=== PATIENT | female | born 1980 | race Hispanic/Latino ===

== ENCOUNTER 2021-05-03 19:43 | Inpatient (IN) | payer MEDICAID ==
[~2021-05-03] VITALS: Ht 157.5 cm; Wt 65.8 kg
[2021-05-03 20:45] VITALS: BP 152/89
[2021-05-03] MEDS ORDERED: PROMETHAZINE HCL 25 MG/ML 1ML AMPULE IM ONE (21:00)
[2021-05-03 21:11] LABS: BASOPHILS % (AUTO) 0.2 % (0.0-5.0); HEMATOCRIT 38.1 % (36-48); LYMPHOCYTES % (AUTO) 12.6 % (21.0-51.0); MEAN CORPUSCULAR VOLUME 88.8 fL (79-99); MONOCYTES % (AUTO) 3.6 % (3.0-13.0); NEUTROPHILS % (AUTO) 83.3 % (40.0-77.0); PLATELET COUNT (AUTO) 328 K/uL (130-400); RED BLOOD CELL COUNT(AUTO) 4.29 MIL/uL (4.00-5.50); RED CELL DISTRIBUTION WIDTH 12.4 % (11.0-15.5); WHITE BLOOD COUNT (AUTO) 17.3 K/uL (4.8-10.8)
[2021-05-03] MEDS ORDERED: DICYCLOMINE 20MG (10MG/ML) AMP IM STA (21:12)
[2021-05-03] MEDS: 0.9%NACL 1000ML 1,000 ML IV SCH (21:25)
[2021-05-03] MEDS ORDERED: DiphenhydrAMINE HCL 50 MG/ML VIAL IV ONE (21:30)
[2021-05-03 21:41] LABS: APPEARANCE,URINE Clear (CLEAR); BILIRUBIN,URINE Negative (NEGATIVE); COLOR,URINE Yellow (YELLOW); GLUCOSE, URINE (UA) Negative (NEGATIVE); KETONES,URINE Trace mg/dL (NEGATIVE); LEUKOCYTE ESTERASE ,URINE Negative (NEGATIVE); NITRATE,URINE Positive (NEGATIVE); OCCULT BLOOD,URINE Small (NEGATIVE); PROTEIN,URINE POS 2+ mg/dL (NEGATIVE)
[2021-05-03 21:46] LABS: HCG,QUAL RESULT NEGATIVE (NEGATIVE)
[2021-05-03 21:50] LABS: BACTERIA,URINE Moderate /HPF (None Seen); SQUAMOUS EPITHELIAL CELL,UR Few /HPF (0-2); WBC,URINE 0-1 /HPF (0-1)
[2021-05-03 21:59] LABS: GLUCOSE,RANDOM 327 mg/dL (70-105); SODIUM SERUM 116 mmol/L (136-145); UREA NITROGEN, BLOOD 11 mg/dL (7-18)
[2021-05-03 22:00] LABS: BILIRUBIN,TOTAL 1.4 mg/dL (0.2-1.0); LIPASE 1545 U/L (114-286)
[2021-05-03] MEDS ORDERED: CEFTRIAXONE 1G VIAL IVP ONE (22:00)
[2021-05-03 22:12] LABS: CHLORIDE 84 mmol/L (101-111)
[2021-05-03 22:15] LABS: MEAN CORPUSCULAR HEMOGLOBIN 33.9 pg (27.0-33.0); MEAN CORPUSCULAR HGB CONC 37.9 g/dL (32.0-36.0)
[2021-05-03 22:19] LABS: CARBON DIOXIDE 31 mmol/L (21-32)
[2021-05-03] MEDS ORDERED: METOCLOPRAMIDE 10 MG/2 ML VIAL ONE (22:20)
[2021-05-03] MEDS ORDERED: 0.9%NACL 1000ML 1,000 ML IV ONE (22:30)
[2021-05-03] MEDS ORDERED: METOCLOPRAMIDE 10 MG/2 ML VIAL IVP ONE (22:30)
[2021-05-03] MEDS ORDERED: ONDANSETRON 4MG INJ ONE (22:41)
[2021-05-03] MEDS ORDERED: MORPHINE 2 MG SYG ONE (22:41)
[2021-05-03] MEDS ORDERED: ONDANSETRON 4MG INJ IVP ONE (23:00)
[2021-05-03] MEDS ORDERED: MORPHINE 2 MG SYG IVP ONE (23:00)
[2021-05-03 23:09] LABS: ALANINE AMINOTRANSFERASE 26 U/L (12-78); ASPARTATE AMINOTRANSFERASE 90 U/L (10-37)
[2021-05-03] MEDS ORDERED: 0.9%NACL 1000ML 1,000 ML IV SCH (23:30)
[2021-05-03] MEDS ORDERED: INSULIN HUMULIN R 100 UNIT/ML 3ML IV ONE (23:30)
[2021-05-03] MEDS ORDERED: MORPHINE 2 MG SYG IV PRN (23:30)
[2021-05-03] MEDS ORDERED: PIP/TAZ ZOSYN 3.375G 3.375 GM VIAL IVPB SCH (23:30)
[2021-05-03] MEDS ORDERED: 0.9%NACL 50ML IV SCH (23:30)
[2021-05-03] MEDS ORDERED: 0.9%NACL 1000ML 1,503 ML IV ONE (23:30)
[2021-05-04] VITALS (17 sets, daily range): BP systolic 106–176; BP diastolic 61–96
[2021-05-04 00:09] LABS: GLOMERULAR FILTR. RATE CALC 0 mL/min (>60)
[2021-05-04 00:17] LABS: LDL DIRECT 44 mg/dL (0-99); THYROID STIMULATING HORMONE 0.21 uIU/mL (0.36-3.74)
[2021-05-04] MEDS: 0.9%NACL 1000ML 1,000 ML IV SCH (01:00)
[2021-05-04 01:29] LABS: HDL CHOLESTEROL 74 mg/dL (35-85); TRIGLYCERIDES 2476 mg/dL (30-200)
[2021-05-04] MEDS: ZOSYN 3.375GM +NS 50ML IV SCH ×4 (01:51→22:35)
[2021-05-04] MEDS: 0.9%NACL 50ML 50 ML IV SCH ×4 (01:51→22:35)
[2021-05-04] MEDS: HYDROMORPHONE 1 MG INJ IV PRN ×2 (02:58→08:23)
[2021-05-04 05:47] LABS: BASOPHILS % (AUTO) 0.1 % (0.0-5.0); HEMATOCRIT 34.6 % (36-48); MEAN CORPUSCULAR HEMOGLOBIN 36.3 pg (27.0-33.0); MEAN CORPUSCULAR HGB CONC 41.3 g/dL (32.0-36.0); MEAN CORPUSCULAR VOLUME 87.8 fL (79-99); MONOCYTES % (AUTO) 4.7 % (3.0-13.0); NEUTROPHILS % (AUTO) 85.8 % (40.0-77.0); PLATELET COUNT (AUTO) 250 K/uL (130-400); RED BLOOD CELL COUNT(AUTO) 3.94 MIL/uL (4.00-5.50); RED CELL DISTRIBUTION WIDTH 12.5 % (11.0-15.5); WHITE BLOOD COUNT (AUTO) 16.4 K/uL (4.8-10.8)
[2021-05-04] MEDS ORDERED: METRONIDAZOLE 500MG/100ML BAG 100 ML IVPB SCH (06:00)
[2021-05-04 06:07] LABS: MAGNESIUM 1.4 mg/dL (1.80-2.40); PHOSPHORUS 1.7 mg/dL (2.5-4.9); POTASSIUM 4.1 mmol/L (3.5-5.1)
[2021-05-04] MEDS: ONDANSETRON 4MG INJ IV PRN ×2 (06:24→12:22)
[2021-05-04 06:59] LABS: CREATININE 0.6 mg/dL (0.5-1.5)
[2021-05-04] MEDS: MAGNESIUM 2GM PREMIX 50ML 50 ML IV SCH ×2 (09:29→23:39)
[2021-05-04] MEDS: FAMOTIDINE 20MG VIAL IV SCH ×2 (09:29→20:37)
[2021-05-04] MEDS: ENOXAPARIN SODIUM 40 MG/0.4 ML SYRINGE SQ SCH (09:29)
[2021-05-04 10:16] LABS: CHOLESTEROL 433 mg/dL (<200); HDL CHOLESTEROL 38 mg/dL (35-85); LDL DIRECT 52 mg/dL (0-99); TRIGLYCERIDES 4031 mg/dL (30-200)
[2021-05-04 10:49] LABS: ALBUMIN 2.9 g/dL (3.5-5.0); BILIRUBIN,TOTAL 0.5 mg/dL (0.2-1.0); TOTAL PROTEIN, SERUM 7.6 g/dL (6.0-8.3)
[2021-05-04] MEDS ORDERED: PHARMACY COMMUNICATION MISC SCH (11:00)
[2021-05-04] MEDS ORDERED: DEXTROSE 5 % AND 0.9 % NACL 1,000 ML IV SCH (11:00)
[2021-05-04] MEDS: KETOROLAC 15MG/ML VIAL (15MG/ML) IV PRN ×2 (11:10→20:39)
[2021-05-04 11:49] LABS: CREATININE 0.6 mg/dL (0.5-1.5); POTASSIUM 3.8 mmol/L (3.5-5.1)
[2021-05-04 12:12] LABS: AMPHET/METH SCREEN,URINE NEGATIVE (NEGATIVE); BARBITURATE SCREEN, URINE NEGATIVE (NEGATIVE); BENZODIAZEPINES SCREEN,URINE POSITIVE (NEGATIVE); CANNABINOID SCREEN,URINE NEGATIVE (NEGATIVE); COCAINE SCREEN,URINE NEGATIVE (NEGATIVE); OPIATE SCREEN,URINE NEGATIVE (NEGATIVE); PHENCYCLIDINE SCREEN,URINE NEGATIVE (NEGATIVE)
[2021-05-04 12:15] LABS: CREATININE,URINE RANDOM 143 mg/dL (30-135)
[2021-05-04 12:20] LABS: SODIUM,URINE RANDOM 258 mmol/l (40-220)
[2021-05-04] MEDS: INSULIN REGULAR, HUMAN 3ML 100 UNIT in 0.9%NACL 100ML 100 ML SQ SCH ×2 (12:23)
[2021-05-04] MEDS ORDERED: THIAMINE HCL 100 MG TABLET PO SCH (12:41)
[2021-05-04] MEDS ORDERED: FOLIC ACID 1 MG TABLET PO SCH (12:41)
[2021-05-04] MEDS: HYDROMORPHONE 0.5 MG SYG (0.5MG/0.5ML) IV PRN ×2 (13:59→18:56)
[2021-05-04] MEDS ORDERED: SOD PHOSPHATE IV PRN ×2 (14:00)
[2021-05-04] MEDS ORDERED: NS IV PRN ×2 (14:00)
[2021-05-04] MEDS: DEXTROSE 5 %-0.45 % NACL 1,000 ML IV SCH (16:05)
[2021-05-04 17:32] LABS: PROTEIN,URINE RANDOM 95.6 mg/dL (0-11.9)
[2021-05-04 18:35] LABS: CHOLESTEROL 415 mg/dL (<200); HDL CHOLESTEROL 36 mg/dL (35-85); LDL DIRECT 79 mg/dL (0-99)
[2021-05-04 18:46] LABS: PARTIAL THROMBOPLASTIN TIME 30.9 SEC (26.3-35.5); PROTHROMBIN TIME 9.8 SEC (9.6-11.6)
[2021-05-04 18:47] LABS: INR 0.93 (0.85-1.15)
[2021-05-04 18:54] LABS: TRIGLYCERIDES 2830 mg/dL (30-200)
[2021-05-04 19:00] LABS: POTASSIUM 2.9 mmol/L (3.5-5.1)
[2021-05-04] MEDS ORDERED: POTASSIUM CHLORIDE 10% ELIXIR 20 MEQ/15 ML UDCUP PO PRN (19:30)
[2021-05-04] MEDS ORDERED: LIDOCAINE HCL-MPF 1% 2ML VIAL IV PRN (19:30)
[2021-05-04] MEDS ORDERED: POTASSIUM CHLORIDE 20MEQ/100ML 100 ML IV PRN (19:30)
[2021-05-04 19:34] LABS: CREATININE 0.4 mg/dL (0.5-1.5)
[2021-05-04] MEDS: ATORVASTATIN 40 MG TABLET PO SCH (20:38)
[2021-05-04] MEDS: KCL 20 MEQ ERTAB PO PRN ×2 (20:38→22:56)
[2021-05-04] MEDS: FISH OIL 1000 MG/CAP PO SCH (20:38)
[2021-05-04 21:40] LABS: MAGNESIUM 1.8 mg/dL (1.80-2.40); POTASSIUM 3.7 mmol/L (3.5-5.1)
[2021-05-04 21:46] LABS: CREATININE 0.5 mg/dL (0.5-1.5)
[2021-05-05] VITALS (24 sets, daily range): BP systolic 100–133; BP diastolic 62–82
[2021-05-05] MEDS: DEXTROSE 5 %-0.45 % NACL 1,000 ML IV SCH ×3 (01:37→20:44)
[2021-05-05 04:05] LABS: HEMOGLOBIN A1C 5.1 % (4.0-6.0)
[2021-05-05] MEDS: HYDROMORPHONE 0.5 MG SYG (0.5MG/0.5ML) IV PRN ×5 (06:00→22:51)
[2021-05-05 07:10] LABS: BASOPHILS % (AUTO) 0.1 % (0.0-5.0); EOSINOPHILS % (AUTO) 0.1 % (0.0-8.0); HEMATOCRIT 30.3 % (36-48); LYMPHOCYTES % (AUTO) 12.6 % (21.0-51.0); MEAN CORPUSCULAR HEMOGLOBIN 33.5 pg (27.0-33.0); MEAN CORPUSCULAR HGB CONC 37.3 g/dL (32.0-36.0); MEAN CORPUSCULAR VOLUME 89.9 fL (79-99); MONOCYTES % (AUTO) 3.5 % (3.0-13.0); NEUTROPHILS % (AUTO) 83.3 % (40.0-77.0); PLATELET COUNT (AUTO) 354 K/uL (130-400); RED BLOOD CELL COUNT(AUTO) 3.37 MIL/uL (4.00-5.50); RED CELL DISTRIBUTION WIDTH 13.3 % (11.0-15.5); WHITE BLOOD COUNT (AUTO) 14.8 K/uL (4.8-10.8)
[2021-05-05 07:53] LABS: CREATININE 0.8 mg/dL (0.5-1.5); POTASSIUM 3.1 mmol/L (3.5-5.1)
[2021-05-05] MEDS: KCL 20 MEQ ERTAB PO PRN (08:02)
[2021-05-05] MEDS: FAMOTIDINE 20MG VIAL IV SCH ×2 (08:04→20:41)
[2021-05-05] MEDS: THIAMINE HCL 100 MG/ML 2ML VIAL IVP SCH (08:04)
[2021-05-05] MEDS: FISH OIL 1000 MG/CAP PO SCH ×3 (08:07→20:44)
[2021-05-05] MEDS: ZOSYN 3.375GM +NS 50ML IV SCH ×3 (08:08→22:51)
[2021-05-05] MEDS: ENOXAPARIN SODIUM 40 MG/0.4 ML SYRINGE SQ SCH (08:08)
[2021-05-05] MEDS: 0.9%NACL 50ML 50 ML IV SCH ×3 (08:09→22:51)
[2021-05-05] MEDS ORDERED: VENL75CA97 PO (09:29)
[2021-05-05] MEDS ORDERED: ESCI-8 PO (09:29)
[2021-05-05] MEDS ORDERED: ETHI1TAB18 PO (09:29)
[2021-05-05] MEDS ORDERED: FENOFIBRATE NANOCRYSTALLIZED 145 MG TAB PO SCH (09:30)
[2021-05-05] MEDS ORDERED: LACTATED RINGERS 1000ML IV SCH (10:00)
[2021-05-05] MEDS: FENOFIBRATE NANOCRYSTALLIZED 145 MG TAB PO SCH (12:19)
[2021-05-05] MEDS: ONDANSETRON 4MG INJ IV PRN (12:19)
[2021-05-05] MEDS: ATORVASTATIN 40 MG TABLET PO SCH (20:44)
[2021-05-06] VITALS (23 sets, daily range): BP systolic 90–139; BP diastolic 38–86
[2021-05-06 03:58] LABS: BASOPHILS % (AUTO) 0.1 % (0.0-5.0); EOSINOPHILS % (AUTO) 0.7 % (0.0-8.0); HEMATOCRIT 31.6 % (36-48); LYMPHOCYTES % (AUTO) 18.2 % (21.0-51.0); MEAN CORPUSCULAR HGB CONC 32.3 g/dL (32.0-36.0); MONOCYTES % (AUTO) 4.8 % (3.0-13.0); NEUTROPHILS % (AUTO) 75.7 % (40.0-77.0); PLATELET COUNT (AUTO) 193 K/uL (130-400); RED BLOOD CELL COUNT(AUTO) 3.29 MIL/uL (4.00-5.50); RED CELL DISTRIBUTION WIDTH 13.7 % (11.0-15.5); WHITE BLOOD COUNT (AUTO) 12.8 K/uL (4.8-10.8)
[2021-05-06 04:14] LABS: ALBUMIN 2.2 g/dL (3.5-5.0); BILIRUBIN,TOTAL 0.4 mg/dL (0.2-1.0); CREATININE 0.7 mg/dL (0.5-1.5); POTASSIUM 3.7 mmol/L (3.5-5.1); T4 (THYROXINE) 1.9 ug/dL (4.7-13.3); TOTAL PROTEIN, SERUM 6.4 g/dL (6.0-8.3)
[2021-05-06] MEDS: 0.9%NACL 50ML 50 ML IV SCH ×3 (07:36→22:44)
[2021-05-06] MEDS: ZOSYN 3.375GM +NS 50ML IV SCH ×3 (07:36→22:44)
[2021-05-06] MEDS: THIAMINE HCL 100 MG/ML 2ML VIAL IVP SCH (10:05)
[2021-05-06] MEDS: HYDROMORPHONE 0.5 MG SYG (0.5MG/0.5ML) IV PRN ×4 (10:05→22:41)
[2021-05-06] MEDS: FAMOTIDINE 20MG VIAL IV SCH ×2 (10:05→22:40)
[2021-05-06] MEDS: FISH OIL 1000 MG/CAP PO SCH ×3 (10:06→22:40)
[2021-05-06] MEDS: FENOFIBRATE NANOCRYSTALLIZED 145 MG TAB PO SCH (10:06)
[2021-05-06] MEDS: ENOXAPARIN SODIUM 40 MG/0.4 ML SYRINGE SQ SCH (10:06)
[2021-05-06] MEDS: ONDANSETRON 4MG INJ IV PRN (13:07)
[2021-05-06] MEDS: DEXTROSE 5 %-0.45 % NACL 1,000 ML IV SCH ×2 (14:06→23:13)
[2021-05-06] MEDS: INSULIN REGULAR, HUMAN 3ML 100 UNIT in 0.9%NACL 100ML 100 ML SQ SCH ×2 (14:10)
[2021-05-06] MEDS: ATORVASTATIN 40 MG TABLET PO SCH (22:40)
[2021-05-07] VITALS (8 sets, daily range): BP systolic 100–140; BP diastolic 60–83
[2021-05-07] MEDS: DEXTROSE 5 %-0.45 % NACL 1,000 ML IV SCH (00:19)
[2021-05-07 03:29] LABS: BASOPHILS % (AUTO) 0.2 % (0.0-5.0); EOSINOPHILS % (AUTO) 0.6 % (0.0-8.0); HEMATOCRIT 29.6 % (36-48); LYMPHOCYTES % (AUTO) 22.8 % (21.0-51.0); MEAN CORPUSCULAR HEMOGLOBIN 30.9 pg (27.0-33.0); MEAN CORPUSCULAR HGB CONC 33.4 g/dL (32.0-36.0); MEAN CORPUSCULAR VOLUME 92.5 fL (79-99); MONOCYTES % (AUTO) 4.4 % (3.0-13.0); NEUTROPHILS % (AUTO) 71.9 % (40.0-77.0); PLATELET COUNT (AUTO) 191 K/uL (130-400); RED CELL DISTRIBUTION WIDTH 13.2 % (11.0-15.5); WHITE BLOOD COUNT (AUTO) 10.8 K/uL (4.8-10.8)
[2021-05-07 03:44] LABS: ALBUMIN 2.2 g/dL (3.5-5.0); BILIRUBIN,TOTAL 0.2 mg/dL (0.2-1.0); CREATININE 0.7 mg/dL (0.5-1.5); POTASSIUM 3.3 mmol/L (3.5-5.1); TOTAL PROTEIN, SERUM 6.4 g/dL (6.0-8.3)
[2021-05-07] MEDS: 0.9%NACL 50ML 50 ML IV SCH (07:25)
[2021-05-07] MEDS: ZOSYN 3.375GM +NS 50ML IV SCH (07:25)
[2021-05-07] MEDS: KCL 20 MEQ ERTAB PO PRN ×3 (07:26→11:41)
[2021-05-07] MEDS: THIAMINE HCL 100 MG/ML 2ML VIAL IVP SCH (09:03)
[2021-05-07] MEDS: FAMOTIDINE 20MG VIAL IV SCH (09:03)
[2021-05-07] MEDS: FENOFIBRATE NANOCRYSTALLIZED 145 MG TAB PO SCH (09:03)
[2021-05-07] MEDS: FISH OIL 1000 MG/CAP PO SCH ×2 (09:03→13:51)
[2021-05-07] MEDS: ENOXAPARIN SODIUM 40 MG/0.4 ML SYRINGE SQ SCH (09:04)
[2021-05-07] MEDS ORDERED: CEFDINIR 250MG/5ML 60ML BOTTLE PO SCH (10:30)
[2021-05-07] MEDS ORDERED: INSULIN HUMULIN R 100 UNIT/ML 3ML SQ SCH (11:30)
[2021-05-07] MEDS ORDERED: FISH1CAP20 PO (12:19)
[2021-05-07] MEDS ORDERED: THIA100T78 PO (12:19)
[2021-05-07] MEDS ORDERED: ATOR40TA69 PO (12:19)
[2021-05-07] MEDS ORDERED: FENO145T PO (12:19)
[2021-05-07] MEDS ORDERED: CEFD300C3 PO (12:45)
[2021-05-07] MEDS ORDERED: POTASSIUM CHLORIDE 10MEQ SR TAB PO SCH (13:30)
== END 2021-05-07 14:35 | disposition home or self-care (01) | DRG 282 ==
LOC: EDH 19:43 → EDHIP 23:13 → 4CH 05-04 09:11 → 2DH 05-04 12:51
PROVIDERS: ADMIT Internal Medicine; ATTEND Internal Medicine
DX: K85.20 Alcohol induced acute pancreatitis without necrosis or infection (principal); N17.9 Acute kidney failure, unspecified; E11.65 Type 2 diabetes mellitus with hyperglycemia; E83.42 Hypomagnesemia; N39.0 Urinary tract infection, site not specified; E87.1 Hypo-osmolality and hyponatremia; E86.1 Hypovolemia; E78.1 Pure hyperglyceridemia; F41.9 Anxiety disorder, unspecified; F32.9 Major depressive disorder, single episode, unspecified; F12.90 Cannabis use, unspecified, uncomplicated; F17.210 Nicotine dependence, cigarettes, uncomplicated; B96.20 Unspecified Escherichia coli [E. coli] as the cause of diseases classified elsewhere; E78.5 Hyperlipidemia, unspecified; E87.6 Hypokalemia; F10.10 Alcohol abuse, uncomplicated; Z86.32 Personal history of gestational diabetes
CPT/HCPCS: 36415; 71045; 74176; 76700; 80048; 80053; 80061; 80305; 81001; 81025; 82150; 82570; 82948; 83036; 83605; 83690; 83735; 83930; 83935; 84100; 84132; 84145; 84156; 84300; 84436; 84439; 84443; 84481; 84484; 85025; 85610; 85730; 87040; 87077; 87088; 87186; 93005; G0378; J0500; J0696; J1170; J1200; J1650; J1815; J1885; J2405; J2543; J2765; J3411; J3475; J3490; J7030; J7042; J7120

== ENCOUNTER 2021-07-08 17:13 | Inpatient (IN) | payer MEDICAID ==
[~2021-07-08] VITALS: Ht 157.5 cm; Wt 64.5 kg
[~2021-07-08 17:13] MED LIST: ATOR40TA69 PO; CEFD300C3 PO; ESCI-8 PO; ETHI1TAB18 PO; FENO145T PO; FISH1CAP20 PO; THIA100T78 PO; VENL75CA97 PO
[2021-07-08 18:58] LABS: POTASSIUM 3.7 mmol/L (3.5-5.1)
[2021-07-08] MEDS ORDERED: FAMOTIDINE 20MG VIAL IV ONE (19:00)
[2021-07-08] MEDS ORDERED: ONDANSETRON 4MG INJ IVP ONE ×2 (19:00→21:00)
[2021-07-08] MEDS ORDERED: MORPHINE 4 MG SYG IVP ONE ×2 (19:00→20:00)
[2021-07-08 19:02] LABS: BASOPHILS % (AUTO) 0.1 % (0.0-5.0); EOSINOPHILS % (AUTO) 0.1 % (0.0-8.0); HEMATOCRIT 31.9 % (36-48); LYMPHOCYTES % (AUTO) 29.6 % (21.0-51.0); MEAN CORPUSCULAR HEMOGLOBIN 31.9 pg (27.0-33.0); MEAN CORPUSCULAR HGB CONC 36.1 g/dL (32.0-36.0); MEAN CORPUSCULAR VOLUME 88.6 fL (79-99); MONOCYTES % (AUTO) 9.3 % (3.0-13.0); NEUTROPHILS % (AUTO) 60.5 % (40.0-77.0); NUCLEATED RED BLOOD CELLS 0.2 % (0.0-0.19); PLATELET COUNT (AUTO) 226 K/uL (130-400); RED CELL DISTRIBUTION WIDTH 13.3 % (11.0-15.5); WHITE BLOOD COUNT (AUTO) 9.3 K/uL (4.8-10.8)
[2021-07-08 19:56] LABS: LDL DIRECT 27 mg/dL (0-99)
[2021-07-08] MEDS ORDERED: 0.9%NACL 1000ML 1,000 ML IV ONE (20:00)
[2021-07-08 20:11] LABS: CHOLESTEROL 651 mg/dL (<200); HDL CHOLESTEROL 54 mg/dL (35-85)
[2021-07-08 20:33] LABS: TRIGLYCERIDES 8297 mg/dL (30-200)
[2021-07-08 20:36] LABS: ALBUMIN 3.5 g/dL (3.5-5.0); BILIRUBIN,TOTAL 0.2 mg/dL (0.2-1.0); CREATININE 0.7 mg/dL (0.5-1.5); TOTAL PROTEIN, SERUM 8.3 g/dL (6.0-8.3)
[2021-07-08] MEDS ORDERED: HYDROMORPHONE 1 MG INJ IVP ONE (21:00)
[2021-07-08] MEDS ORDERED: KETOROLAC 30MG VIAL (30MG/ML) IV ONE (21:00)
[2021-07-08] MEDS ORDERED: PHARMACY COMMUNICATION MISC SCH (21:30)
[2021-07-08] MEDS ORDERED: 0.9%NACL 100ML 100 ML ONE (22:30)
[2021-07-08] MEDS ORDERED: INSULIN HUMULIN R 100 UNIT/ML 3ML ONE (22:33)
[2021-07-08] MEDS ORDERED: LIDOCAINE HCL-MPF 1% 2ML VIAL IV PRN (23:00)
[2021-07-08] MEDS: FENOFIBRATE NANOCRYSTALLIZED 145 MG TAB PO SCH (23:00)
[2021-07-08] MEDS: ATORVASTATIN 40 MG TABLET PO SCH (23:00)
[2021-07-08] MEDS: LACTATED RINGERS 1000ML 1,000 ML IV SCH (23:55)
[2021-07-08] MEDS: INSULIN REGULAR, HUMAN 3ML 100 UNIT in 0.9%NACL 100ML 99 ML IV SCH ×2 (23:55)
[2021-07-09] MEDS: HYDROMORPHONE 1 MG INJ IV PRN ×4 (01:17→21:35)
[2021-07-09 02:51] LABS: POTASSIUM 3.8 mmol/L (3.5-5.1)
[2021-07-09] MEDS: LACTATED RINGERS 1000ML 1,000 ML IV SCH ×2 (04:10→10:50)
[2021-07-09 04:30] LABS: CREATININE 0.7 mg/dL (0.5-1.5)
[2021-07-09 05:21] LABS: BASOPHILS % (AUTO) 0.2 % (0.0-5.0); EOSINOPHILS % (AUTO) 0.1 % (0.0-8.0); HEMATOCRIT 34.6 % (36-48); LYMPHOCYTES % (AUTO) 10.1 % (21.0-51.0); MEAN CORPUSCULAR HEMOGLOBIN 36.6 pg (27.0-33.0); MEAN CORPUSCULAR HGB CONC 42.2 g/dL (32.0-36.0); MEAN CORPUSCULAR VOLUME 86.7 fL (79-99); MONOCYTES % (AUTO) 6.5 % (3.0-13.0); NEUTROPHILS % (AUTO) 82.8 % (40.0-77.0); PLATELET COUNT (AUTO) 211 K/uL (130-400); RED BLOOD CELL COUNT(AUTO) 3.99 MIL/uL (4.00-5.50); RED CELL DISTRIBUTION WIDTH 13.2 % (11.0-15.5); WHITE BLOOD COUNT (AUTO) 13.7 K/uL (4.8-10.8)
[2021-07-09 05:38] LABS: POTASSIUM 3.8 mmol/L (3.5-5.1)
[2021-07-09] MEDS: ONDANSETRON 4MG INJ IV PRN ×2 (05:42→08:15)
[2021-07-09 06:59] LABS: CREATININE 0.6 mg/dL (0.5-1.5)
[2021-07-09] MEDS: FAMOTIDINE 20MG VIAL IV SCH ×2 (08:14→21:36)
[2021-07-09] MEDS: MORPHINE 2 MG SYG IV PRN ×2 (08:15→14:42)
[2021-07-09] MEDS: FENOFIBRATE NANOCRYSTALLIZED 145 MG TAB PO SCH (08:17)
[2021-07-09] MEDS ORDERED: ENOXAPARIN SODIUM 40 MG/0.4 ML SYRINGE SQ SCH (09:00)
[2021-07-09 10:04] LABS: AMPHET/METH SCREEN,URINE NEGATIVE (NEGATIVE); BARBITURATE SCREEN, URINE NEGATIVE (NEGATIVE); BENZODIAZEPINES SCREEN,URINE POSITIVE (NEGATIVE); CANNABINOID SCREEN,URINE NEGATIVE (NEGATIVE); COCAINE SCREEN,URINE NEGATIVE (NEGATIVE); OPIATE SCREEN,URINE POSITIVE (NEGATIVE); PHENCYCLIDINE SCREEN,URINE NEGATIVE (NEGATIVE)
[2021-07-09 10:09] LABS: LDL DIRECT 39 mg/dL (0-99)
[2021-07-09 11:10] LABS: CHOLESTEROL 235 mg/dL (<200); HDL CHOLESTEROL 22 mg/dL (35-85)
[2021-07-09 11:24] LABS: TRIGLYCERIDES 2085 mg/dL (30-200)
[2021-07-09 14:03] LABS: POTASSIUM 3.7 mmol/L (3.5-5.1)
[2021-07-09 14:40] LABS: CREATININE 0.8 mg/dL (0.5-1.5)
[2021-07-09] MEDS: MEROPENEM 1 GM VIAL IVP SCH ×2 (15:34→23:39)
[2021-07-09] MEDS ORDERED: 0.9%NACL 50ML 50 ML IV ONE (21:12)
[2021-07-09] MEDS: FISH OIL 1000 MG/CAP PO SCH ×2 (21:30→23:39)
[2021-07-09] MEDS: DEXTROSE 5%-LACTATED RINGERS 1,000 ML IV SCH ×2 (21:30→23:00)
[2021-07-09 21:33] LABS: POTASSIUM 3.5 mmol/L (3.5-5.1)
[2021-07-09] MEDS: ATORVASTATIN 40 MG TABLET PO SCH (21:35)
[2021-07-09 22:04] LABS: CREATININE 0.8 mg/dL (0.5-1.5)
[2021-07-10] MEDS: HYDROMORPHONE 1 MG INJ IV PRN ×5 (00:14→23:27)
[2021-07-10] MEDS: ONDANSETRON 4MG INJ IV PRN ×3 (04:13→23:06)
[2021-07-10] MEDS: MORPHINE 2 MG SYG IV PRN (04:13)
[2021-07-10] MEDS: ACETAMINOPHEN 325 MG TAB PO PRN (04:13)
[2021-07-10 04:19] LABS: CREATINE KINASE, TOTAL 51 U/L (21-232)
[2021-07-10 04:40] LABS: TRIGLYCERIDES 4224 mg/dL (30-200)
[2021-07-10] MEDS ORDERED: SIMETHICONE 40 MG/0.6 ML ML PO PRN (06:30)
[2021-07-10] MEDS ORDERED: 0.9%NACL 1000ML 1,000 ML IV SCH ×2 (07:00→07:30)
[2021-07-10] MEDS ORDERED: DEXTROSE 10%-WATER 1,000 ML IV ONE (07:17)
[2021-07-10] MEDS: DEXTROSE 10%-WATER 1,000 ML IV SCH ×3 (07:38→17:54)
[2021-07-10] MEDS: MEROPENEM 1 GM VIAL IVP SCH (07:49)
[2021-07-10] MEDS: FENOFIBRATE NANOCRYSTALLIZED 145 MG TAB PO SCH (07:49)
[2021-07-10] MEDS: FAMOTIDINE 20MG VIAL IV SCH (07:49)
[2021-07-10] MEDS: FISH OIL 1000 MG/CAP PO SCH ×3 (07:49→23:26)
[2021-07-10] MEDS ORDERED: HYDROMORPHONE 1 MG INJ IVP PRN (08:00)
[2021-07-10] MEDS ORDERED: DEXTROSE 50%-WATER 50 ML DISP.SYRIN IV ONE ×3 (08:32→18:30)
[2021-07-10 10:45] LABS: CREATININE 0.7 mg/dL (0.5-1.5); POTASSIUM 3.5 mmol/L (3.5-5.1)
[2021-07-10] MEDS: POTASSIUM CHLORIDE 20MEQ/100ML 100 ML IV PRN (12:17)
[2021-07-10] MEDS: ACETAMINOPHEN 500 MG TABLET PO SCH ×3 (12:32→23:26)
[2021-07-10] MEDS: INSULIN REGULAR, HUMAN 3ML 100 UNIT in 0.9%NACL 100ML 99 ML IV SCH ×4 (13:07→23:00)
[2021-07-10] MEDS ORDERED: IOHEXOL-350 75 ML VIAL IV ONE (13:57)
[2021-07-10] MEDS ORDERED: IOHEXOL-350 50ML VIAL IV ONE (14:12)
[2021-07-10 18:46] LABS: CREATININE 0.7 mg/dL (0.5-1.5); POTASSIUM 3.2 mmol/L (3.5-5.1)
[2021-07-10 19:00] VITALS: BP 124/69
[2021-07-10 20:00] VITALS: BP 92/45
[2021-07-10 21:00] VITALS: BP 105/55
[2021-07-10] MEDS: ATORVASTATIN 40 MG TABLET PO SCH (21:47)
[2021-07-10 22:00] VITALS: BP 130/75
[2021-07-10 23:00] VITALS: BP 119/72
[2021-07-11] VITALS (23 sets, daily range): BP systolic 103–161; BP diastolic 52–81
[2021-07-11 03:31] LABS: BASOPHILS % (AUTO) 0.2 % (0.0-5.0); HEMATOCRIT 28.8 % (36-48); MEAN CORPUSCULAR HEMOGLOBIN 30.5 pg (27.0-33.0); MEAN CORPUSCULAR HGB CONC 34.4 g/dL (32.0-36.0); MEAN CORPUSCULAR VOLUME 88.6 fL (79-99); MONOCYTES % (AUTO) 4.5 % (3.0-13.0); NEUTROPHILS % (AUTO) 77.4 % (40.0-77.0); PLATELET COUNT (AUTO) 184 K/uL (130-400); RED BLOOD CELL COUNT(AUTO) 3.25 MIL/uL (4.00-5.50); RED CELL DISTRIBUTION WIDTH 14.2 % (11.0-15.5); WHITE BLOOD COUNT (AUTO) 12.6 K/uL (4.8-10.8)
[2021-07-11 03:41] LABS: HEMOGLOBIN A1C 5.9 % (4.0-6.0)
[2021-07-11 03:53] LABS: BILIRUBIN,TOTAL 0.4 mg/dL (0.2-1.0); CREATININE 0.9 mg/dL (0.5-1.5); MAGNESIUM 1.3 mg/dL (1.80-2.40)
[2021-07-11 03:54] LABS: POTASSIUM 2.5 mmol/L (3.5-5.1)
[2021-07-11] MEDS: POTASSIUM CHLORIDE 20MEQ/100ML 100 ML IV PRN ×2 (04:00→07:26)
[2021-07-11 04:14] LABS: CRP QUANTITATIVE 269.9 mg/L (0.00-9.0)
[2021-07-11 04:48] LABS: ERYTHROCYTE SEDIMENTATION RATE 77 MM/HR (0-20)
[2021-07-11] MEDS: ACETAMINOPHEN 500 MG TABLET PO SCH ×4 (05:30→22:25)
[2021-07-11] MEDS: ONDANSETRON 4MG INJ IV PRN (06:52)
[2021-07-11] MEDS ORDERED: MAGNESIUM 2GM PREMIX 50ML 50 ML IV PRN (07:00)
[2021-07-11] MEDS: FENOFIBRATE NANOCRYSTALLIZED 145 MG TAB PO SCH (08:02)
[2021-07-11] MEDS: FISH OIL 1000 MG/CAP PO SCH ×3 (08:02→22:24)
[2021-07-11] MEDS: PANTOPRAZOLE 40 MG/VIAL IVP SCH (08:02)
[2021-07-11] MEDS: ACETAMINOPHEN 325 MG TAB PO PRN (08:07)
[2021-07-11] MEDS ORDERED: KCL 20 MEQ ERTAB PO ONE ×2 (08:39→10:33)
[2021-07-11] MEDS: HYDROMORPHONE 1 MG INJ IV PRN (08:42)
[2021-07-11] MEDS: ENOXAPARIN SODIUM 40 MG/0.4 ML SYRINGE SQ SCH (09:00)
[2021-07-11] MEDS: DEXTROSE 5%-WATER 1,000 ML IV SCH ×2 (10:06→20:02)
[2021-07-11 10:15] LABS: INR 1.01 (0.85-1.15)
[2021-07-11 10:17] LABS: PARTIAL THROMBOPLASTIN TIME 32.4 SEC (26.3-35.5)
[2021-07-11] MEDS: MEROPENEM 1 GM VIAL IVP SCH ×2 (10:37→17:45)
[2021-07-11] MEDS: KCL 20 MEQ ERTAB PO PRN ×2 (12:14→17:25)
[2021-07-11] MEDS ORDERED: POTASSIUM PHOS 15 mMOL+NS250ML 250 ML IV PRN ×2 (17:00→17:30)
[2021-07-11] MEDS ORDERED: SOD PHOSPHATE 45 MMOL/15 ML VI 15 MMOL in 0.9% NACL 250ML 250 ML IV PRN (17:30)
[2021-07-11] MEDS: INSULIN REGULAR, HUMAN 3ML 100 UNIT in 0.9%NACL 100ML 99 ML IV SCH ×2 (20:04)
[2021-07-11 20:13] LABS: HEMATOCRIT 27.8 % (36-48)
[2021-07-11 20:33] LABS: CREATININE 0.8 mg/dL (0.5-1.5); MAGNESIUM 2.2 mg/dL (1.80-2.40); PHOSPHORUS 1.6 mg/dL (2.5-4.9); POTASSIUM 3.9 mmol/L (3.5-5.1)
[2021-07-11] MEDS: ATORVASTATIN 40 MG TABLET PO SCH (21:00)
[2021-07-11] MEDS ORDERED: GLUCAGON 1MG KIT 1 MG ML IM PRN (22:00)
[2021-07-11] MEDS: DEXTROSE 50%-WATER 50 ML DISP.SYRIN IV PRN (22:22)
[2021-07-12] VITALS (10 sets, daily range): BP systolic 107–144; BP diastolic 60–92
[2021-07-12] MEDS: MEROPENEM 1 GM VIAL IVP SCH ×3 (02:00→17:14)
[2021-07-12 03:31] LABS: BASOPHILS % (AUTO) 0.1 % (0.0-5.0); EOSINOPHILS % (AUTO) 1.8 % (0.0-8.0); HEMATOCRIT 26.6 % (36-48); LYMPHOCYTES % (AUTO) 31.3 % (21.0-51.0); MEAN CORPUSCULAR HEMOGLOBIN 30.7 pg (27.0-33.0); MEAN CORPUSCULAR HGB CONC 34.2 g/dL (32.0-36.0); MEAN CORPUSCULAR VOLUME 89.9 fL (79-99); MONOCYTES % (AUTO) 6.3 % (3.0-13.0); NEUTROPHILS % (AUTO) 60.1 % (40.0-77.0); PLATELET COUNT (AUTO) 194 K/uL (130-400); RED BLOOD CELL COUNT(AUTO) 2.96 MIL/uL (4.00-5.50); RED CELL DISTRIBUTION WIDTH 14.6 % (11.0-15.5); WHITE BLOOD COUNT (AUTO) 8.9 K/uL (4.8-10.8)
[2021-07-12 04:10] LABS: ALANINE AMINOTRANSFERASE 18 U/L (12-78); ASPARTATE AMINOTRANSFERASE 17 U/L (10-37); BILIRUBIN,TOTAL 0.4 mg/dL (0.2-1.0); CARBON DIOXIDE 26 mmol/L (21-32); CHLORIDE 107 mmol/L (101-111); CREATININE 0.8 mg/dL (0.5-1.5); GLOMERULAR FILTR. RATE CALC 84 mL/min (>60); GLUCOSE,RANDOM 78 mg/dL (70-105); LIPASE 371 U/L (114-286); PHOSPHORUS 1.6 mg/dL (2.5-4.9); POTASSIUM 3.9 mmol/L (3.5-5.1); SODIUM SERUM 139 mmol/L (136-145); TOTAL PROTEIN, SERUM 5.9 g/dL (6.0-8.3); TRIGLYCERIDES 360 mg/dL (30-200); UREA NITROGEN, BLOOD 2 mg/dL (7-18)
[2021-07-12 04:36] LABS: % IRON SATURATION 11.8 % (22-44)
[2021-07-12] MEDS: DEXTROSE 5%-WATER 1,000 ML IV SCH (05:30)
[2021-07-12] MEDS: ACETAMINOPHEN 500 MG TABLET PO SCH ×3 (05:35→17:14)
[2021-07-12] MEDS: DEXTROSE 50%-WATER 50 ML DISP.SYRIN IV PRN (05:55)
[2021-07-12] MEDS ORDERED: COMPOUND IV MISC 1 EACH IVSOLN MISC PRN (09:30)
[2021-07-12] MEDS: FENOFIBRATE NANOCRYSTALLIZED 145 MG TAB PO SCH (09:57)
[2021-07-12] MEDS: FISH OIL 1000 MG/CAP PO SCH ×2 (09:57→15:20)
[2021-07-12] MEDS: PANTOPRAZOLE 40 MG/VIAL IVP SCH (09:58)
[2021-07-12] MEDS: ENOXAPARIN SODIUM 40 MG/0.4 ML SYRINGE SQ SCH (09:58)
[2021-07-12] MEDS: IRON SUCROSE COMPLEX 100 MG in 0.9%NACL 50ML 50 ML IV SCH (09:58)
[2021-07-12] MEDS: INSULIN HUMULIN R 100 UNIT/ML 3ML SQ SCH ×3 (11:30→21:00)
[2021-07-12] MEDS: DEXTROSE 5%-LACTATED RINGERS 1,000 ML IV SCH ×2 (13:24→23:20)
[2021-07-12 19:24] LABS: HEMATOCRIT 29.5 % (36-48)
[2021-07-12] MEDS: ATORVASTATIN 40 MG TABLET PO SCH (21:26)
[2021-07-13] MEDS: FISH OIL 1000 MG/CAP PO SCH ×4 (00:10→23:56)
[2021-07-13] MEDS: ACETAMINOPHEN 500 MG TABLET PO SCH ×5 (00:14→23:57)
[2021-07-13] MEDS: MEROPENEM 1 GM VIAL IVP SCH ×4 (02:04→23:58)
[2021-07-13 04:29] VITALS: BP 131/70
[2021-07-13 04:51] LABS: BASOPHILS % (AUTO) 0.1 % (0.0-5.0); EOSINOPHILS % (AUTO) 1.4 % (0.0-8.0); HEMATOCRIT 28.8 % (36-48); LYMPHOCYTES % (AUTO) 33.2 % (21.0-51.0); MEAN CORPUSCULAR HEMOGLOBIN 30.4 pg (27.0-33.0); MEAN CORPUSCULAR HGB CONC 33.7 g/dL (32.0-36.0); MEAN CORPUSCULAR VOLUME 90.3 fL (79-99); MONOCYTES % (AUTO) 6.9 % (3.0-13.0); NEUTROPHILS % (AUTO) 57.8 % (40.0-77.0); PLATELET COUNT (AUTO) 248 K/uL (130-400); RED BLOOD CELL COUNT(AUTO) 3.19 MIL/uL (4.00-5.50); RED CELL DISTRIBUTION WIDTH 14.5 % (11.0-15.5); WHITE BLOOD COUNT (AUTO) 8.9 K/uL (4.8-10.8)
[2021-07-13 05:20] LABS: ALBUMIN 2.3 g/dL (3.5-5.0); BILIRUBIN,TOTAL 0.3 mg/dL (0.2-1.0); CREATININE 0.9 mg/dL (0.5-1.5); POTASSIUM 3.8 mmol/L (3.5-5.1); TOTAL PROTEIN, SERUM 6.7 g/dL (6.0-8.3)
[2021-07-13] MEDS: INSULIN HUMULIN R 100 UNIT/ML 3ML SQ SCH ×4 (05:47→21:00)
[2021-07-13 08:00] VITALS: BP 120/66
[2021-07-13] MEDS: FENOFIBRATE NANOCRYSTALLIZED 145 MG TAB PO SCH (09:19)
[2021-07-13] MEDS: ENOXAPARIN SODIUM 40 MG/0.4 ML SYRINGE SQ SCH (09:19)
[2021-07-13] MEDS: PANTOPRAZOLE 40 MG/VIAL IVP SCH (09:20)
[2021-07-13] MEDS: IRON SUCROSE COMPLEX 100 MG in 0.9%NACL 50ML 50 ML IV SCH (10:15)
[2021-07-13] MEDS: DEXTROSE 5%-LACTATED RINGERS 1,000 ML IV SCH ×2 (10:21→18:34)
[2021-07-13 12:00] VITALS: BP 126/74
[2021-07-13 16:00] VITALS: BP 101/61
[2021-07-13 19:24] VITALS: BP 139/79
[2021-07-13] MEDS: ATORVASTATIN 40 MG TABLET PO SCH (21:18)
[2021-07-13 23:41] VITALS: BP 151/86
[2021-07-14 04:08] LABS: HEMATOCRIT 28.7 % (36-48); MEAN CORPUSCULAR HEMOGLOBIN 30.3 pg (27.0-33.0); MEAN CORPUSCULAR HGB CONC 33.8 g/dL (32.0-36.0); MEAN CORPUSCULAR VOLUME 89.7 fL (79-99); RED BLOOD CELL COUNT(AUTO) 3.2 MIL/uL (4.00-5.50); RED CELL DISTRIBUTION WIDTH 13.8 % (11.0-15.5); WHITE BLOOD COUNT (AUTO) 7.2 K/uL (4.8-10.8)
[2021-07-14 04:27] LABS: ALBUMIN 2.5 g/dL (3.5-5.0); BILIRUBIN,TOTAL 0.4 mg/dL (0.2-1.0); CREATININE 0.8 mg/dL (0.5-1.5); POTASSIUM 3.7 mmol/L (3.5-5.1); TOTAL PROTEIN, SERUM 6.9 g/dL (6.0-8.3)
[2021-07-14 05:18] VITALS: BP 111/62
[2021-07-14] MEDS: FISH OIL 1000 MG/CAP PO SCH ×2 (05:19→15:44)
[2021-07-14] MEDS: ACETAMINOPHEN 500 MG TABLET PO SCH ×2 (05:21→11:31)
[2021-07-14] MEDS: INSULIN HUMULIN R 100 UNIT/ML 3ML SQ SCH ×3 (06:34→15:57)
[2021-07-14 08:24] VITALS: BP 105/57
[2021-07-14] MEDS: FENOFIBRATE NANOCRYSTALLIZED 145 MG TAB PO SCH (08:52)
[2021-07-14] MEDS: IRON SUCROSE COMPLEX 100 MG in 0.9%NACL 50ML 50 ML IV SCH (08:52)
[2021-07-14] MEDS: ENOXAPARIN SODIUM 40 MG/0.4 ML SYRINGE SQ SCH (08:53)
[2021-07-14] MEDS: PANTOPRAZOLE 40 MG/VIAL IVP SCH (08:54)
[2021-07-14 10:48] VITALS: BP 114/63
[2021-07-14] MEDS: MEROPENEM 1 GM VIAL IVP SCH (11:30)
[2021-07-14] MEDS ORDERED: OMEG-148 PO (14:40)
[2021-07-14] MEDS ORDERED: ICOS1CAP PO (14:40)
[2021-07-14] MEDS: DEXTROSE 5%-LACTATED RINGERS 1,000 ML IV SCH (15:20)
[2021-07-14 15:57] VITALS: BP 132/84
== END 2021-07-14 17:15 | disposition home or self-care (01) | DRG 282 ==
LOC: EDH 17:13 → EDHIP 21:05 → 2DH 07-10 19:43 → 3CH 07-12 16:00
PROVIDERS: ADMIT Internal Medicine; ATTEND Internal Medicine
DX: K85.80 Other acute pancreatitis without necrosis or infection (principal); D65 Disseminated intravascular coagulation [defibrination syndrome]; N17.9 Acute kidney failure, unspecified; E83.42 Hypomagnesemia; E83.39 Other disorders of phosphorus metabolism; E11.65 Type 2 diabetes mellitus with hyperglycemia; R71.0 Precipitous drop in hematocrit; E87.8 Other disorders of electrolyte and fluid balance, not elsewhere classified; R16.0 Hepatomegaly, not elsewhere classified; R18.8 Other ascites; E87.1 Hypo-osmolality and hyponatremia; E86.1 Hypovolemia; E78.1 Pure hyperglyceridemia; F11.10 Opioid abuse, uncomplicated; E87.6 Hypokalemia; F13.10 Sedative, hypnotic or anxiolytic abuse, uncomplicated; F41.9 Anxiety disorder, unspecified; F32.A Depression, unspecified; E78.5 Hyperlipidemia, unspecified; F17.210 Nicotine dependence, cigarettes, uncomplicated; F12.90 Cannabis use, unspecified, uncomplicated; F19.10 Other psychoactive substance abuse, uncomplicated; K76.0 Fatty (change of) liver, not elsewhere classified; Z98.51 Tubal ligation status; Z86.32 Personal history of gestational diabetes; Z56.0 Unemployment, unspecified; Z91.11 Patient's noncompliance with dietary regimen; Z91.19 Patient's noncompliance with other medical treatment and regimen
CPT/HCPCS: 36415; 74174; 74176; 76705; 80048; 80053; 80061; 80305; 81025; 82150; 82550; 82607; 82728; 82746; 82948; 83036; 83540; 83550; 83690; 83735; 83930; 83935; 84100; 84132; 84145; 84300; 84478; 85014; 85018; 85025; 85027; 85378; 85384; 85610; 85651; 85730; 86140; 86701; 86850; 86900; 86901; 87040; 87088; 87390; C9113; G0378; J1170; J1650; J1756; J1815; J1885; J2185; J2270; J2405; J3475; J3480; J3490; J7030; J7050; J7070; Q9967

== ENCOUNTER 2023-01-07 09:33 | Emergency (ER) | payer MEDICAID ==
[~2023-01-07] VITALS: Ht 160 cm; Wt 63.0 kg
[~2023-01-07 09:33] MED LIST changes: -CEFD300C3 PO; -FISH1CAP20 PO; +ICOS1CAP PO; +OMEG-148 PO
[2023-01-07 10:15] LABS: BASOPHILS % (AUTO) 0.3 % (0.0-5.0); EOSINOPHILS % (AUTO) 0.6 % (0.0-8.0); HEMATOCRIT 35.6 % (36-48); LYMPHOCYTES % (AUTO) 41.2 % (21.0-51.0); MEAN CORPUSCULAR HEMOGLOBIN 31.1 pg (27.0-33.0); MEAN CORPUSCULAR HGB CONC 33.7 g/dL (32.0-36.0); MEAN CORPUSCULAR VOLUME 92.2 fL (79-99); MONOCYTES % (AUTO) 6.5 % (3.0-13.0); NEUTROPHILS % (AUTO) 51.1 % (40.0-77.0); PLATELET COUNT (AUTO) 270 K/uL (130-400); RED BLOOD CELL COUNT(AUTO) 3.86 MIL/uL (4.00-5.50); RED CELL DISTRIBUTION WIDTH 11.4 % (11.0-15.5); WHITE BLOOD COUNT (AUTO) 7.1 K/uL (4.8-10.8)
[2023-01-07 10:30] LABS: CREATININE 0.7 mg/dL (0.5-1.5); POTASSIUM 4.2 mmol/L (3.5-5.1)
[2023-01-07 10:38] LABS: ALBUMIN 3.5 g/dL (3.5-5.0)
[2023-01-07] MEDS ORDERED: 0.9%NACL 1000ML 1,000 ML IV ONE (12:30)
[2023-01-07 12:35] LABS: APPEARANCE,URINE CLOUDY (CLEAR); BILIRUBIN,URINE NEGATIVE (NEGATIVE); COLOR,URINE YELLOW (YELLOW); GLUCOSE, URINE (UA) NEGATIVE (NEGATIVE); KETONES,URINE NEGATIVE (NEGATIVE); LEUKOCYTE ESTERASE ,URINE NEGATIVE Leu/uL (NEGATIVE); NITRATE,URINE 2+ (NEGATIVE); OCCULT BLOOD,URINE NEGATIVE (NEGATIVE); PROTEIN,URINE NEGATIVE (NEGATIVE); UROBILINOGEN,URINE 0.2 mg/dL (0.2-1.0)
[2023-01-07 12:41] LABS: HCG,QUALITATIVE URINE NEGATIVE (NEGATIVE)
[2023-01-07 12:44] LABS: BACTERIA,URINE FEW /HPF (None Seen); MUCUS,URINE RARE LPF (None Seen); SQUAMOUS EPITHELIAL CELL,UR FEW /HPF (0-2)
[2023-01-07] MEDS ORDERED: METO5 PO (15:32)
[2023-01-07] MEDS ORDERED: PANT40TA55 PO (15:32)
[2023-01-07] MEDS ORDERED: ONDA4TAB10 PO (15:32)
[2023-01-07 15:44] VITALS: BP 119/78
== END 2023-01-07 15:45 | disposition home or self-care (01) ==
LOC: EDH 09:33
DX: R07.89 Other chest pain (principal); R11.2 Nausea with vomiting, unspecified; E11.9 Type 2 diabetes mellitus without complications; E78.00 Pure hypercholesterolemia, unspecified; F32.A Depression, unspecified; Z79.899 Other long term (current) drug therapy; Z98.890 Other specified postprocedural states; Z88.8 Allergy status to other drugs, medicaments and biological substances
CPT/HCPCS: 99285; 96360; 71045; 84484 ×2; 80053; 83690; 85025; 85378; 87077; 87088; 87186; 81001; 81025; 36415; 93005 ×2; J7030